=== PATIENT | male | born 1965 | race Caucasian/White ===

== ENCOUNTER → 2017-12-25 | Outpatient (CLI) | payer BC, OTHER ==
[2017-12-25 16:30] LABS: Appearance,Urine Clear (Clear); Bilirubin,Urine Negative (Negative); Blood,Urine Negative (Negative); Color,Urine Yellow; Glucose,Urine (UA) 4+ (Negative); Ketones,Urine 1+ (Negative); Leukocyte Esterase,Urine Negative (Negative); Nitrite,Urine Negative (Negative); PH, Urine 5.5 (5.0-8.0); Protein,Urine Negative (Negative); Specific Gravity,Urine 1.029 (1.001-1.035); Urobilinogen,Urine <2.0 mg/dL (<2.0)
[2017-12-25 16:31] LABS: Basophils # (A) 0.1 k/uL (0-0.2); Basophils % (A) 1 %; Eosinophils # (A) 0.1 k/uL (0-0.7); Eosinophils % (A) 2 %; HCT 47.1 % (39.0-53.0); HGB 15.5 gm/dL (13.0-17.5); Lymphocytes # (A) 1.6 k/uL (1.0-4.8); Lymphocytes % (A) 20 %; MCH 29.2 pg (25.0-35.0); MCV 88.4 fL (80.0-100.0); Mean Platelet Volume 6.8; Monocytes # (A) 0.6 k/uL (0-1.0); Monocytes % (A) 7 %; Neutrophils # (A) 5.3 k/uL (1.3-7.7); Neutrophils % (A) 68 %; Platelet Count 452 k/uL (150-450); RBC 5.32 m/uL (4.30-5.90); RDW 13.3 % (11.5-15.5); WBC 7.7 k/uL (3.8-10.6)
[2017-12-25 16:49] LABS: ALT 30 U/L (21-72); AST 22 U/L (17-59); Albumin 4.4 g/dL (3.5-5.0); Alkaline Phosphatase 135 U/L (38-126); Anion Gap 10 mmol/L; Blood Urea Nitrogen 16 mg/dL (9-20); Calcium 9.6 mg/dL (8.4-10.2); Carbon Dioxide 26 mmol/L (22-30); Chloride 100 mmol/L (98-107); Cholesterol 235 mg/dL (<200); Glucose 316 mg/dL (74-99); HDL Cholesterol 32 mg/dL (40-60); LDL Cholesterol,Calculated 129 mg/dL (0-99); Potassium 5.3 mmol/L (3.5-5.1); Sodium 136 mmol/L (137-145); Total Bilirubin 0.6 mg/dL (0.2-1.3); Total Protein 7.7 g/dL (6.3-8.2); Triglycerides 369 mg/dL (<150)
[2017-12-25 17:04] LABS: T4, Free (Free Thyroxine) 1.03 ng/dL (0.78-2.19)
[2017-12-25 17:18] LABS: Prostate Specific Antigen 0.58 ng/mL (0.00-4.00)
[2017-12-25 18:50] LABS: Erythrocyte Sedimentation Rate 12 mm/hr (0-15)
[2017-12-26 02:17] LABS: Protein, Total 7.4 g/dL (6.2-8.2)
[2017-12-26 03:06] LABS: Hemoglobin A1C 12.7 % (4.0-6.0)
[2017-12-26 14:25] LABS: Cancer Antigen 19-9 8.3 U/mL (0.0-34.9)
[2017-12-28 09:32] LABS: Gamma Globulin 1.05 g/dL (0.70-1.50)
== END | disposition home or self-care (01) ==
LOC: LABWHC1 15:44
PROVIDERS: ATTEND Internal Medicine
DX: E11.9 Type 2 diabetes mellitus without complications (principal); I10 Essential (primary) hypertension; R63.4 Abnormal weight loss
CPT/HCPCS: 36415; 80053; 80061; 81003; 82378; 83036; 84153; 84165; 84439; 84443; 85025; 85652; 86301

== ENCOUNTER → 2018-01-08 | Outpatient (CLI) | payer BC ==
[2018-01-08 13:10] LABS: Blood Urea Nitrogen 13 mg/dL (9-20)
--- NOTE | 2018-01-08 14:26 | CT ---
EXAMINATION TYPE: CT abdomen pelvis w con DATE OF EXAM: 01/08/2018 COMPARISON: None HISTORY: Weight loss 40 lbs-[address] DLP: 1915.3 mGycm, Automated Exposure Control for Dose Reduction was Utilized. CONTRAST: CT scan of the abdomen and pelvis is performed with oral and with IV Contrast, patient injected with 100 mL of Isovue 300. FINDINGS: LUNG BASES: No significant abnormality is appreciated. LIVER/GB: Liver is diffusely low dense suggesting possible fatty infiltration. PANCREAS: No significant abnormality is seen. SPLEEN: No significant abnormality is seen. ADRENALS: No significant abnormality is seen. KIDNEYS: No significant abnormality is seen. BOWEL: The oral contrast reaches level of rectum. There is no suspicious small or large bowel dilatat ion slightly low-lying cecum into right pelvis is seen. Terminal ileum shows mild wall thickening. Th ere is fecal prominence in the rectum noted. PROSTATE/SEMINAL VESICLES: No gross abnormality seen. LYMPH NODES: No greater than 1cm abdominal or pelvic lymph nodes are appreciated. OSSEOUS STRUCTURES: Spine is straightened with mild to moderate multilevel anterior and lateral spurr ing. OTHER: Mild calcified plaque of aorta extends into branch vessels. IMPRESSION: No suspicious mass or adenopathy. Perhaps mild enteritis or inflammation at level of ter guillermo ileum, correlate clinically.
== END | disposition home or self-care (01) ==
LOC: RADCTMAIN 12:06
PROVIDERS: ATTEND Internal Medicine
DX: R63.4 Abnormal weight loss (principal)
CPT/HCPCS: 82565; 84520; 74177; 36415; Q9967

== ENCOUNTER 2018-01-20 06:36 | Day surgery (SDC) | payer BC, OTHER ==
[2018-01-18 14:32] VITALS: BMI 33.7
[~2018-01-20 06:36] MED LIST: LACTATED RINGERS 1,000 ML IV SCH; LIDOCAINE 1% 20 ML VIAL (10MG/ML) FOR IV START INTRADERMA PRN
[2018-01-20 07:11] VITALS: TEMP 97.7
[2018-01-20 07:28] LABS: Glucose,Whole Blood 174 mg/dL (75-99)
[2018-01-20] MEDS ORDERED: fentaNYL (PF) 50 MCG/ML 2 ML AMP ONE (07:47)
[2018-01-20] MEDS ORDERED: PROPOFOL 10 MG/ML 20 ML VIAL IV ONE (07:47)
[2018-01-20] MEDS ORDERED: MIDAZOLAM 2 MG/2 ML VIAL ONE (07:47)
--- NOTE | 2018-01-20 07:52 | P.GSHP ---
History of Present Illness H&P Date: 01/20/18 Chief Complaint: Colon cancer screening Patient here today for screening colonoscopy. He has had some unexplained weight loss recently. No bowel complaints. No family history of colon cancer. Past Medical History Past Medical History: Diabetes Mellitus, Hyperlipidemia, Hypertension History of Any Multi-Drug Resistant Organisms: None Reported Past Surgical History: Orthopedic Surgery Additional Past Surgical History / Comment(s): Colonoscopy; Fred. shoulder arthroscopies; Fx Wrist repair; pilonidal cyst Past Anesthesia/Blood Transfusion Reactions: Postoperative Nausea & Vomiting ( PONV) Smoking Status: Former smoker - Past Family History Father Family Medical History: Deep Vein Thrombosis (DVT) Medications and Allergies Home Medications Medication Instructions Recorded Confirmed Type Atorvastatin Calcium 20 mg PO HS 06/26/15 01/20/18 History Lisinopril 40 mg PO HS 06/26/15 01/20/18 History Metoprolol Tartrate 50 mg PO HS 06/26/15 01/20/18 History amLODIPine BESYLATE [Amlodipine 10 mg PO HS 06/26/15 01/20/18 History Besylate] glipiZIDE [Glipizide] 5 mg PO HS 06/26/15 01/20/18 History metFORMIN HCL 1,000 mg PO HS 06/26/15 01/20/18 History Allergies Allergy/AdvReac Type Severity Reaction Status Date / Time No Known Allergies Allergy Verified 01/18/18 14:27 Surgical - Exam Vital Signs Temp Pulse Resp BP Pulse Ox 97.7 F 61 14 111/66 97 01/20/18 07:07 01/20/18 07:07 01/20/18 07:07 01/20/18 07:07 01/20/18 07:07 Physical exam: General: Well-developed, well-nourished HEENT: Normocephalic, sclerae nonicteric Abdomen: Nontender, nondistended Extremities: No edema Neuro: Alert and oriented Results - Labs Abnormal Lab Results - Last 24 Hours (Table) 01/20/18 Range/Units 07:09 POC Glucose (mg/dL) 174 H (75-99) mg/dL Assessment and Plan (1) Colon cancer screening Narrative/Plan: Will proceed with colonoscopy at this time Current Visit: Yes Status: Acute Code(s): Z12.11 - ENCOUNTER FOR SCREENING FOR MALIGNANT NEOPLASM OF COLON SNOMED Code(s): 970979228
--- NOTE | 2018-01-20 08:04 | P.PCN ---
Date of Procedure: 01/20/18 Procedure(s) Performed: PREOPERATIVE DIAGNOSIS: Colon cancer screening POSTOPERATIVE DIAGNOSIS: Normal exam PROCEDURE: Colonoscopy ANESTHESIA: MAC SURGEON: Rajan Robert M.D. SPECIMENS: None ENDOSCOPIC PROCEDURE: The patient was placed on the endoscopy table in the left decubitus position. The Olympus colonoscope was inserted into the anus and passed under direct visualization to the base of the cecum. The appendiceal orifice was visualized. From that point the scope was slowly withdrawn inspecting all surfaces carefully. There were no neoplastic inflammatory or polypoid lesions throughout the cecum, ascending, transverse, descending, sigmoid and rectum. There was no diverticulosis noted. Digital rectal examination was normal. The patient was taken to the recovery room in stable condition per anesthesia guidelines. RECOMMENDATIONS: Increase fiber. Follow-up colonoscopy 10 years. Continue workup of the patient's weight loss.
[2018-01-20 08:11] VITALS: RESP 16
[2018-01-20 08:28] VITALS: BP 104/69; PULSE 58
== END 2018-01-20 08:45 | disposition home or self-care (01) ==
LOC: ORWHC2ENDO 06:36
PROVIDERS: ATTEND Surgery
DX: R63.4 Abnormal weight loss (principal); Z68.33 Body mass index [BMI] 33.0-33.9, adult; E11.9 Type 2 diabetes mellitus without complications; E78.00 Pure hypercholesterolemia, unspecified; I10 Essential (primary) hypertension; Z87.891 Personal history of nicotine dependence; Z79.84 Long term (current) use of oral hypoglycemic drugs; Z79.899 Other long term (current) drug therapy
CPT/HCPCS: 45378; J2250; J3010; J2704

== ENCOUNTER 2020-01-26 07:16 | Day surgery (SDC) | payer BC ==
[~2020-01-26 07:16] MED LIST changes: -LIDOCAINE 1% 20 ML VIAL (10MG/ML) FOR IV START INTRADERMA PRN
[2020-01-26 07:42] VITALS: RESP 16; TEMP 97.2
[2020-01-26 07:43] LABS: Glucose,Whole Blood 179 mg/dL (75-99)
[2020-01-26] MEDS ORDERED: LIDOCAINE 1% (10MG/ML) FOR IV START INTRADERMA ONE (07:43)
[2020-01-26] MEDS ORDERED: PROPOFOL 10 MG/ML 20 ML VIAL IV ONE (08:15)
[2020-01-26] MEDS ORDERED: GLYCOPYRROLATE 0.2 MG/ML 2 ML VIAL ONE (08:15)
[2020-01-26] MEDS ORDERED: LIDOCAINE 1% INJ 10MG/ML (20 ML MDV) ONE (08:15)
--- NOTE | 2020-01-26 08:59 | P.PCN ---
Date of Procedure: 01/26/20 Description of Procedure: Brief history: Patient is a pleasant 54-year-old male presenting EGD and colonoscopy for evaluation of GERD and altered bowel function. 2 years of diffuse periumbilical pain with altered bowel function presently diarrhea with associated urgency. Patient also has a history of nausea, vomiting as well as gastroesophageal reflux disease. Procedure performed: Esophagogastroduodenoscopy with biopsy Colonoscopy with biopsy Estimated blood loss: Minimal. Preoperative diagnosis: GERD, altered bowel function, abdominal pain, less colonoscopy for screening purposes at the age of 52 Anesthesia: MAC Procedure: After informed consent was obtained from the patient was brought into the endoscopy unit and IV sedation was administered by anesthesia under continuous monitoring. Initially upper endoscopy was done. The Olympus GF 190 video endoscope was inserted into the mouth and esophagus intubated without any difficulty and was gradually advanced into the stomach and duodenum and carefully examined. The bulb and second part of the duodenum appeared normal, with biopsies taken. The scope was then withdrawn into the stomach adequately insufflated with air and upon careful examination the antrum and body, cardia and fundus appeared normal, except for some mild scattered erythema in the antrum and body suggestive of mild gastritis with biopsies taken. The scope was then withdrawn into the esophagus. The GE junction was located at 42 cm to the incisors and biopsied. It appeared regular with no erythema erosions or ulcerations. Rest of the esophagus appeared normal. Patient tolerated the procedure well. At this time the patient continued to remain sedation. Initial digital rectal examination was normal. Olympus CF 190 video colonoscope was then inserted into the rectum and gradually advanced to the cecum without any difficulty. Careful examination was performed as the scope was gradually being withdrawn. The prep was excellent. The cecum, ascending colon, transverse colon, descending colon, sigmoid colon and rectum appeared normal, with biopsies taken of the right colon, transverse colon, left colon and rectum. The terminal ileum was intubated with ileitis noted and over 10 to provisional ulcers with biopsies taken, with some mild IC valve stricturing noted. Retroflexion was performed in the rectum and no lesions were noted. Patient tolerated the procedure well. Impression: 1. Mild gastritis. Biopsies of the duodenum, antrum and body and GE junction. 2. Moderate ileitis. Biopsies taken of the terminal ileum, right colon, transverse colon, left colon and rectum. Recommendations: Findings of this examination were discussed with the patient as well as his father. Okay to resume diet. Okay to resume medications. Follow-up in gastroenterology clinic for further management. If findings are consistent with chronicity of inflammation patient will need to be started on maintenance medication for Crohn's disease.
[2020-01-26 09:12] VITALS: BP 118/75; PULSE 62
== END 2020-01-26 09:34 | disposition home or self-care (01) ==
LOC: ORWHC2ENDO 07:16
PROVIDERS: ATTEND Internal Medicine
DX: K52.9 Noninfective gastroenteritis and colitis, unspecified (principal); K63.3 Ulcer of intestine; K56.699 Other intestinal obstruction unspecified as to partial versus complete obstruction; K22.70 Barrett's esophagus without dysplasia; K21.00 Gastro-esophageal reflux disease with esophagitis, without bleeding; K29.80 Duodenitis without bleeding; K63.89 Other specified diseases of intestine; K29.50 Unspecified chronic gastritis without bleeding; I10 Essential (primary) hypertension; E78.5 Hyperlipidemia, unspecified; E11.9 Type 2 diabetes mellitus without complications; Z79.84 Long term (current) use of oral hypoglycemic drugs; Z79.899 Other long term (current) drug therapy; Z98.890 Other specified postprocedural states; Z91.89 Other specified personal risk factors, not elsewhere classified
CPT/HCPCS: 88305; 45380; 43239; J2001; J2704

== ENCOUNTER → 2020-03-09 | Outpatient (CLI) | payer BC ==
[2020-03-09 15:01] LABS: Basophils # (A) 0.1 k/uL (0-0.2); Basophils % (A) 1 %; Eosinophils # (A) 0.2 k/uL (0-0.7); Eosinophils % (A) 2 %; HCT 44.9 % (39.0-53.0); HGB 14.5 gm/dL (13.0-17.5); Lymphocytes # (A) 1.9 k/uL (1.0-4.8); Lymphocytes % (A) 22 %; MCH 28.2 pg (25.0-35.0); MCHC 32.2 g/dL (31.0-37.0); MCV 87.5 fL (80.0-100.0); Mean Platelet Volume 6.7; Monocytes # (A) 0.5 k/uL (0-1.0); Monocytes % (A) 6 %; Neutrophils % (A) 68 %; Platelet Count 590 k/uL (150-450); RBC 5.12 m/uL (4.30-5.90); RDW 13.7 % (11.5-15.5); WBC 8.9 k/uL (3.8-10.6)
[2020-03-09 20:29] LABS: Hemoglobin A1C 7.6 % (4.0-6.0)
[2020-03-09 20:31] LABS: African American GFR (CKD) 113.4 (60.0-200.0); Albumin 4.6 g/dL (3.80-4.90); Albumin/Globulin Ratio 1.92 (1.60-3.17); Anion Gap 7.9 mmol/L (4.00-12.00); BUN/Creat Ratio 13.33 Ratio (12.00-20.00); Calcium 9.3 mg/dL (8.7-10.3); Carbon Dioxide 26.1 mmol/L (21.6-31.8); Chol/HDL Ratio 4.18; Globulin 2.4 g/dL (1.6-3.3); Non-African American GFR(CKD) 97.9 (60.0-200.0); Potassium 4.6 mmol/L (3.5-5.5); Total Bilirubin 0.3 mg/dL (0.2-1.2)
[2020-03-09 20:48] LABS: T4, Free (Free Thyroxine) 0.9 ng/dL (0.80-1.80)
[2020-03-09 21:03] LABS: Gliadin AB IgA, Deaminated NEGATIVE (NEGATIVE); Gliadin AB IgA, Unit <0.2 U/mL; Gliadin AB IgG, Deaminated NEGATIVE (NEGATIVE)
[2020-03-09 21:26] LABS: Urine Creatinine 112.7 mg/dL
== END | disposition home or self-care (01) ==
LOC: LABWHC1 14:09
PROVIDERS: ATTEND Internal Medicine
DX: K50.00 Crohn's disease of small intestine without complications (principal); E78.5 Hyperlipidemia, unspecified; E11.9 Type 2 diabetes mellitus without complications; I10 Essential (primary) hypertension
CPT/HCPCS: 36415; 80053; 80061; 82043; 82570; 83036; 83516; 84439; 84443; 85025

== ENCOUNTER → 2023-06-26 | Outpatient (CLI) | payer BC ==
--- NOTE | 2023-06-26 17:07 | US ---
EXAMINATION TYPE: US prostate transrectal DATE OF EXAM: 06/26/2023 COMPARISON: NONE CLINICAL INDICATION: Male, 57 years old with history of N40.0 BENIGN PROSTATIC HYPERPLASIA WITHOUT LO WER U; hyperplasia This examination was performed using the transrectal probe. EXAM MEASUREMENTS: Gland Size: 4.3x2.6x4.5cm Volume: 26.7 ml Predicted PSA: 37.3 Actual PSA (if available):not sent over from office there is a 1.2x0.8x0.9cm complex area noted within the base of the prostate there are shadowing calcific areas within the prostate IMPRESSION: Complex are noted in the base of the prostate gland further evaluation with MRI prostate should be pe rformed. Predicted PSA = volume x 0.12 ng/ml Calculated Volume = 0.5236 x L x W x H
== END | disposition home or self-care (01) ==
LOC: RADUSWWP 14:46
PROVIDERS: ATTEND Family Medicine
DX: N40.0 Benign prostatic hyperplasia without lower urinary tract symptoms (principal)
CPT/HCPCS: 76872

== ENCOUNTER → 2023-07-20 | Outpatient (CLI) | payer BC ==
--- NOTE | 2023-07-20 13:22 | US ---
EXAMINATION TYPE: US scrotum with doppler. Grayscale and color Doppler Duplex imaging performed of day jarquin scrotum. 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 There is no evidence of testicular torsion. Presence of hydroceles: 3.0x1.7x1.4cm on the right Presence of varicoceles: left side 1.5cm scrotal wall thickening/edema, exam limited by edema IMPRESSION: There is evidence of scrotal wall thickening and edema. Correlate for underlying infection. Right-amparo ed hydrocele noted. Left-sided varicoceles also identified.
== END | disposition home or self-care (01) ==
LOC: RADUSWWP 12:11
PROVIDERS: ATTEND Family Medicine
DX: N43.3 Hydrocele, unspecified (principal); N50.89 Other specified disorders of the male genital organs; I86.1 Scrotal varices; R60.0 Localized edema
CPT/HCPCS: 76870; 93975

== ENCOUNTER → 2023-08-10 | Outpatient (CLI) | payer BC ==
--- NOTE | 2023-08-11 13:11 | MR ---
EXAMINATION TYPE: MR Prostate wo/w con DATE OF EXAM: 08/10/2023 8:15 AM COMPARISON: Ultrasound 06/26/2023.. CLINICAL INDICATION:Male, 57 years old with history of N40.3 NODULAR PROSTATE; Nodular prostate. TECHNIQUE: Multi-planar, multi-sequence imaging of the pelvis is performed prior to and following the uncomplicated administration of bolus intravenous gadolinium. CONTRAST: 12 Gadavist Interpretive Criteria: PI-RADS v2.1 SERUM PSA: 1.43 on 02/28/2023.. SURGICAL PATHOLOGY: No data available. FINDINGS: Prostatic dimensions: 4.6 x 4.2 x 3.5 cm. "Bullet" Volume:44.26 (PSA density=0.03 ng/mL/mL) CENTRAL GLAND (Central and Transition Zones/CZ+TZ): Multiple bilateral, heterogenous appearing hypertrophic stromal nodules, without suspicious lesion. M edian lobe hypertrophy with protrusion into the base of the bladder. (PI-RADS 2) PERIPHERAL ZONE (PZ): Bilateral linear, indistinct wedgelike areas of low ADC, and low T2 signal, No evidence of masslike a bnormality, or localized perfusional hypervascularity, to further suggest a focus of clinically signi ficant prostate cancer. (PI-RADS 2) SEMINAL VESICLES (SV): Symmetric and unremarkable. PERIPROSTATIC TISSUES: Unremarkable. LYMPH NODES: No enlarged pelvic lymph node. REMAINING PELVIS: Bladder wall is within normal limits given distention. No abnormal free or organized intrapelvic fluid collection. No pathologic bowel dilation or mural thickening. No hernia visualized OSSEOUS STRUCTURES: No suspicious osseous abnormality. IMPRESSION: 1. No suspicious finding to correlate with ultrasound. No specific features for high-risk prostate ca ncer. Maximum PI-RADS score: 2. 2. Mild BPH, estimated gland volume 44.26 mL. 3. No suspicious osseous lesion. No lymphadenopathy. No evidence of prostate adenocarcinoma involving the periprostatic tissues.
== END | disposition home or self-care (01) ==
LOC: RADMRIMAIN 06:57
PROVIDERS: ATTEND Urology
DX: N40.0 Benign prostatic hyperplasia without lower urinary tract symptoms (principal); N40.3 Nodular prostate with lower urinary tract symptoms
CPT/HCPCS: 72197; A9585